=== PATIENT | male | born 1995 | race Caucasian/White ===

== ENCOUNTER 2019-02-13 12:55 | Inpatient (IN) | payer OTHER ==
[2019-02-13] MEDS: SOD CHLORIDE 0.9% 1,000 ML IV ×2 (14:52→20:00)
[2019-02-13 14:57] LABS: ADD MAN DIFF? NO
[2019-02-13 14:59] LABS: WHITE BLOOD COUNT 7.3 10^3/ul (4.8-10.8)
[2019-02-13 14:59] LABS: BASOPHIL # 0.1 10^3/ul (0.0-0.1); BASOPHILS % 1.1 % (0.0-2.0); EOSINOPHILS # 0.4 10^3/ul (0.0-0.5); EOSINOPHILS % 5.5 % (0.0-7.0); LYMPHOCYTES # 1.7 10^3/ul (0.8-2.9); LYMPHOCYTES % 22.9 % (15.0-51.0); MEAN CORPUSCULAR HEMOGLOBIN 31.3 pg (29.0-33.0); MEAN CORPUSCULAR HGB CONC 34.1 g/dl (32.0-37.0); MEAN CORPUSCULAR VOLUME 91.7 fl (82.0-101.0); MEAN PLATELET VOLUME 9.8 fl (7.4-10.4); MONOCYTE # 0.5 10^3/ul (0.3-0.9); MONOCYTES % 6.8 % (0.0-11.0); NEUTROPHIL # 4.6 10^3/ul (1.6-7.5); NEUTROPHILS % 63.3 % (39.0-77.0); PLATELET COUNT 254 10^3/UL (140-415); RED BLOOD COUNT 4.47 10^6/ul (4.70-6.10); RED CELL DISTRIBUTION WIDTH 13.7 % (11.5-14.5)
[2019-02-13 15:00] LABS: ADD UMIC NO; UR ASCORBIC ACID NEGATIVE (NEGATIVE); UR BILIRUBIN (Dip) NEGATIVE (NEGATIVE); UR BLOOD (Dip) NEGATIVE (NEGATIVE); UR CLARITY CLEAR (CLEAR); UR COLOR STRAW (YELLOW); UR GLUCOSE (Dip) 3+ mg/dL (NEGATIVE); UR KETONES (Dip) NEGATIVE (NEGATIVE); UR LEUKOCYTE ESTERASE (Dip) NEGATIVE Leu/ul (NEGATIVE); UR NITRITE (Dip) NEGATIVE (NEGATIVE); UR TOTAL PROTEIN (Dip) NEGATIVE (NEGATIVE); UR UROBILINOGEN (Dip) NEGATIVE (NEGATIVE)
[2019-02-13 15:16] LABS: ALANINE AMINOTRANSFERASE 137 IU/L (13-69); ALBUMIN 3.9 g/dl (3.3-4.9); ALBUMIN/GLOBULIN RATIO 1.25; ALKALINE PHOSPHATASE 160 IU/L (42-121); ANION GAP 10 (5-13); ASPARTATE AMINO TRANSFERASE 103 IU/L (15-46); BILIRUBIN,INDIRECT 1.3 mg/dl (0-1.1); BILIRUBIN,TOTAL 1.3 mg/dl (0.2-1.3); BLOOD UREA NITROGEN 9 mg/dl (7-20); CALCIUM 9.8 mg/dl (8.4-10.2); CARBON DIOXIDE 31 mmol/L (21-31); CHLORIDE 100 mmol/L (97-110); CREATININE 0.53 mg/dl (0.61-1.24); Estimated GFR > 60 mL/min (>60); GLUCOSE 295 mg/dl (70-220); POTASSIUM 4.2 mmol/L (3.5-5.1); SODIUM 141 mmol/L (135-144)
[2019-02-13 15:51] LABS: LIPASE 3963 U/L (23-300)
[2019-02-13] MEDS ORDERED: ACETAMINOPHEN 325 MG TAB PO ×2 (18:00→18:30)
[2019-02-13] MEDS ORDERED: ONDANSETRON 4 MG INJ IV ×2 (18:00→18:30)
[2019-02-13] MEDS ORDERED: NACL 0.9% 3 ML SYG IV (18:30)
[2019-02-13] MEDS ORDERED: DOCUSATE SODIUM 100 MG CAP PO (18:30)
[2019-02-13] MEDS ORDERED: LORAZEPAM 2 MG INJ IV (18:30)
[2019-02-13] MEDS ORDERED: NITROGLYCERIN (SL) 0.4 MG TAB SL (18:30)
[2019-02-13] MEDS ORDERED: ALBUTEROL/IPRATROPIUM (NEB) 3 ML AMP HHN (18:30)
[2019-02-13] MEDS ORDERED: hydrALAzine 20 MG INJ IV (18:30)
[2019-02-13] MEDS ORDERED: MAGNESIUM HYDROXIDE 30ML CUP PO (18:30)
[2019-02-13 19:38] LABS: INR 0.92; PARTIAL THROMBOPLASTIN TIME 24.1 Sec (23.0-35.0); PROTIME 12.5 Sec (11.9-14.9)
[2019-02-13 19:50] LABS: ETHANOL < 10.0 mg/dl (0-0)
[2019-02-13 20:04] LABS: FREE T4 (FREE THYROXINE) 0.97 ng/dl (0.79-2.35)
[2019-02-13] MEDS: INSULIN ASPART [NOVOLOG] 3 ML PEN SC (21:00)
[2019-02-13] MEDS: HEPARIN 5,000 UNIT/1 ML VIAL SC (21:00)
[2019-02-13] MEDS: DEXTROSE 5%-0.45% NACL 1,000 ML IV (21:52)
[2019-02-13] MEDS: morphine 2 MG INJ IV (23:51)
[2019-02-14] MEDS: ACCU-CHEK XX ×6 (01:23→21:00)
[2019-02-14] MEDS ORDERED: GLUCOSE GEL 15 GRAM TUBE PO ×2 (01:30)
[2019-02-14] MEDS ORDERED: GLUCAGON 1 MG INJ IM (01:30)
[2019-02-14] MEDS ORDERED: GLUCOSE GEL 15 GRAM TUBE BUCCAL (01:30)
[2019-02-14] MEDS ORDERED: DEXTROSE 50% 50 ML SYRINGE IV (01:30)
[2019-02-14] MEDS: DEXTROSE 50% 50 ML SYRINGE IV ×2 (01:53→06:23)
[2019-02-14] MEDS ORDERED: ACCU-CHEK XX (02:00)
[2019-02-14 05:04] LABS: ADD MAN DIFF? NO
[2019-02-14 05:12] LABS: BASOPHIL # 0.1 10^3/ul (0.0-0.1); BASOPHILS % 1.1 % (0.0-2.0); EOSINOPHILS # 0.7 10^3/ul (0.0-0.5); EOSINOPHILS % 9.1 % (0.0-7.0); HEMATOCRIT 38.4 % (42.0-52.0); HEMOGLOBIN 12.6 g/dl (14.0-18.0); LYMPHOCYTES # 1.9 10^3/ul (0.8-2.9); LYMPHOCYTES % 26.3 % (15.0-51.0); MEAN CORPUSCULAR HEMOGLOBIN 30.7 pg (29.0-33.0); MEAN CORPUSCULAR HGB CONC 32.8 g/dl (32.0-37.0); MEAN CORPUSCULAR VOLUME 93.4 fl (82.0-101.0); MEAN PLATELET VOLUME 10.1 fl (7.4-10.4); MONOCYTE # 0.6 10^3/ul (0.3-0.9); NEUTROPHILS % 55.1 % (39.0-77.0); PLATELET COUNT 245 10^3/UL (140-415); RED BLOOD COUNT 4.11 10^6/ul (4.70-6.10)
[2019-02-14 05:12] LABS: WHITE BLOOD COUNT 7.3 10^3/ul (4.8-10.8)
[2019-02-14 05:31] LABS: ALANINE AMINOTRANSFERASE 115 IU/L (13-69); ALBUMIN 3.3 g/dl (3.3-4.9); ALKALINE PHOSPHATASE 133 IU/L (42-121); ASPARTATE AMINO TRANSFERASE 105 IU/L (15-46); BILIRUBIN,INDIRECT 1.2 mg/dl (0-1.1); BILIRUBIN,TOTAL 1.2 mg/dl (0.2-1.3); TOTAL PROTEIN 5.9 g/dl (6.1-8.1)
[2019-02-14 05:44] LABS: ANION GAP 5 (5-13); BLOOD UREA NITROGEN 7 mg/dl (7-20); CALCIUM 9.3 mg/dl (8.4-10.2); CARBON DIOXIDE 34 mmol/L (21-31); CHLORIDE 107 mmol/L (97-110); CREATININE 0.51 mg/dl (0.61-1.24); Estimated GFR > 60 mL/min (>60); GLUCOSE 66 mg/dl (70-220); LIPASE 1473 U/L (23-300); MAGNESIUM 2.2 mg/dl (1.7-2.5); PHOSPHORUS 5.6 mg/dl (2.5-4.9); POTASSIUM 4.1 mmol/L (3.5-5.1); SODIUM 146 mmol/L (135-144)
[2019-02-14] MEDS: DEXTROSE 5%-0.45% NACL 1,000 ML IV ×2 (06:57→16:48)
[2019-02-14 07:21] LABS: HEMOGLOBIN A1C 9.5 % (0-5.9)
[2019-02-14 08:09] LABS: CHOLESTEROL 135 mg/dl (100-200)
[2019-02-14 08:09] LABS: CHOL/HDL RATIO 5.6 RATIO; HDL CHOLESTEROL 24 mg/dl (30-63); LDL CHOLESTEROL,CALCULATED 57 mg/dl; TRIGLYCERIDES 269 mg/dl (0-149)
[2019-02-14] MEDS: HEPARIN 5,000 UNIT/1 ML VIAL SC (09:00)
[2019-02-14] MEDS: HYDROCODONE/APAP (5/325) TAB PO (12:57)
[2019-02-14] MEDS: morphine 2 MG INJ IV (16:50)
[2019-02-14] MEDS: INSULIN PUMP SC ×2 (17:17→21:00)
[2019-02-15] MEDS: ACCU-CHEK XX ×6 (01:00→21:00)
[2019-02-15] MEDS: INSULIN PUMP SC ×7 (02:01→21:00)
[2019-02-15] MEDS: DEXTROSE 5%-0.45% NACL 1,000 ML IV (02:53)
[2019-02-15 05:10] LABS: ADD MAN DIFF? NO
[2019-02-15 05:16] LABS: WHITE BLOOD COUNT 4.7 10^3/ul (4.8-10.8)
[2019-02-15 05:16] LABS: BASOPHIL # 0.1 10^3/ul (0.0-0.1); BASOPHILS % 1.5 % (0.0-2.0); EOSINOPHILS # 0.5 10^3/ul (0.0-0.5); EOSINOPHILS % 11.3 % (0.0-7.0); HEMATOCRIT 34.6 % (42.0-52.0); HEMOGLOBIN 11.6 g/dl (14.0-18.0); LYMPHOCYTES # 1.6 10^3/ul (0.8-2.9); LYMPHOCYTES % 34.3 % (15.0-51.0); MEAN CORPUSCULAR HEMOGLOBIN 31.5 pg (29.0-33.0); MEAN CORPUSCULAR HGB CONC 33.5 g/dl (32.0-37.0); MEAN PLATELET VOLUME 10.1 fl (7.4-10.4); MONOCYTE # 0.4 10^3/ul (0.3-0.9); MONOCYTES % 7.9 % (0.0-11.0); NEUTROPHIL # 2.1 10^3/ul (1.6-7.5); NEUTROPHILS % 44.6 % (39.0-77.0); PLATELET COUNT 219 10^3/UL (140-415); RED BLOOD COUNT 3.68 10^6/ul (4.70-6.10); RED CELL DISTRIBUTION WIDTH 13.8 % (11.5-14.5)
[2019-02-15] MEDS: morphine 2 MG INJ IV (05:30)
[2019-02-15 05:57] LABS: LIPASE 1290 U/L (23-300)
[2019-02-15 06:00] LABS: ALANINE AMINOTRANSFERASE 182 IU/L (13-69); ALBUMIN 2.9 g/dl (3.3-4.9); ALBUMIN/GLOBULIN RATIO 1.11; ALKALINE PHOSPHATASE 135 IU/L (42-121); ANION GAP 4 (5-13); ASPARTATE AMINO TRANSFERASE 347 IU/L (15-46); BILIRUBIN,INDIRECT 1.6 mg/dl (0-1.1); BILIRUBIN,TOTAL 1.6 mg/dl (0.2-1.3); BLOOD UREA NITROGEN 7 mg/dl (7-20); CALCIUM 8.7 mg/dl (8.4-10.2); CARBON DIOXIDE 32 mmol/L (21-31); CHLORIDE 105 mmol/L (97-110); CREATININE 0.59 mg/dl (0.61-1.24); Estimated GFR > 60 mL/min (>60); GLUCOSE 128 mg/dl (70-220); POTASSIUM 3.8 mmol/L (3.5-5.1); SODIUM 141 mmol/L (135-144); TOTAL PROTEIN 5.5 g/dl (6.1-8.1)
[2019-02-15 12:09] LABS: HAAIG REFLEX REFLEX FILED
[2019-02-15] MEDS: SOD CHLORIDE 0.9% 1,000 ML IV ×2 (12:33→22:19)
[2019-02-15 13:06] LABS: HEPATITIS B SURFACE ANTIGEN NEGATIVE (NEGATIVE)
[2019-02-15 13:24] LABS: HEPATITIS B CORE ANTIBODY NEGATIVE (NEGATIVE); HEPATITIS C VIRAL ANTIBODY NEGATIVE (NEGATIVE)
[2019-02-16] MEDS: INSULIN PUMP SC ×6 (01:00→21:35)
[2019-02-16] MEDS: ACCU-CHEK XX ×6 (01:00→21:31)
[2019-02-16 05:40] LABS: ADD MAN DIFF? NO
[2019-02-16 05:48] LABS: WHITE BLOOD COUNT 3.5 10^3/ul (4.8-10.8)
[2019-02-16 05:48] LABS: BASOPHIL # 0.1 10^3/ul (0.0-0.1); BASOPHILS % 2.3 % (0.0-2.0); EOSINOPHILS # 0.3 10^3/ul (0.0-0.5); EOSINOPHILS % 8.4 % (0.0-7.0); HEMATOCRIT 36.5 % (42.0-52.0); LYMPHOCYTES # 1.5 10^3/ul (0.8-2.9); LYMPHOCYTES % 43.2 % (15.0-51.0); MEAN CORPUSCULAR HEMOGLOBIN 30.8 pg (29.0-33.0); MEAN CORPUSCULAR HGB CONC 32.9 g/dl (32.0-37.0); MEAN CORPUSCULAR VOLUME 93.8 fl (82.0-101.0); MEAN PLATELET VOLUME 10.7 fl (7.4-10.4); MONOCYTE # 0.3 10^3/ul (0.3-0.9); MONOCYTES % 8.4 % (0.0-11.0); NEUTROPHIL # 1.3 10^3/ul (1.6-7.5); NEUTROPHILS % 37.4 % (39.0-77.0); PLATELET COUNT 230 10^3/UL (140-415); RED BLOOD COUNT 3.89 10^6/ul (4.70-6.10); RED CELL DISTRIBUTION WIDTH 13.5 % (11.5-14.5)
[2019-02-16 06:14] LABS: ALANINE AMINOTRANSFERASE 285 IU/L (13-69); ALBUMIN 3.4 g/dl (3.3-4.9); ALBUMIN/GLOBULIN RATIO 1.17; ALKALINE PHOSPHATASE 197 IU/L (42-121); ANION GAP 8 (5-13); ASPARTATE AMINO TRANSFERASE 610 IU/L (15-46); BILIRUBIN,INDIRECT 1.9 mg/dl (0-1.1); BILIRUBIN,TOTAL 1.9 mg/dl (0.2-1.3); BLOOD UREA NITROGEN 6 mg/dl (7-20); CALCIUM 9.2 mg/dl (8.4-10.2); CARBON DIOXIDE 31 mmol/L (21-31); CHLORIDE 108 mmol/L (97-110); CREATININE 0.57 mg/dl (0.61-1.24); Estimated GFR > 60 mL/min (>60); GLUCOSE 67 mg/dl (70-220); LIPASE 1150 U/L (23-300); POTASSIUM 3.9 mmol/L (3.5-5.1); SODIUM 147 mmol/L (135-144); TOTAL PROTEIN 6.3 g/dl (6.1-8.1)
[2019-02-16] MEDS: SOD CHLORIDE 0.9% 1,000 ML IV ×2 (08:57→17:55)
[2019-02-17] MEDS: INSULIN PUMP SC ×6 (01:00→20:43)
[2019-02-17] MEDS: ACCU-CHEK XX ×6 (01:05→20:44)
[2019-02-17 05:19] LABS: ADD MAN DIFF? NO
[2019-02-17 05:24] LABS: WHITE BLOOD COUNT 4.6 10^3/ul (4.8-10.8)
[2019-02-17 05:24] LABS: BASOPHIL # 0.1 10^3/ul (0.0-0.1); BASOPHILS % 1.7 % (0.0-2.0); EOSINOPHILS # 0.4 10^3/ul (0.0-0.5); EOSINOPHILS % 8.5 % (0.0-7.0); HEMATOCRIT 34.9 % (42.0-52.0); HEMOGLOBIN 11.7 g/dl (14.0-18.0); LYMPHOCYTES # 1.6 10^3/ul (0.8-2.9); LYMPHOCYTES % 35.7 % (15.0-51.0); MEAN CORPUSCULAR HEMOGLOBIN 31.1 pg (29.0-33.0); MEAN CORPUSCULAR HGB CONC 33.5 g/dl (32.0-37.0); MEAN CORPUSCULAR VOLUME 92.8 fl (82.0-101.0); MEAN PLATELET VOLUME 10.5 fl (7.4-10.4); MONOCYTE # 0.4 10^3/ul (0.3-0.9); MONOCYTES % 8.7 % (0.0-11.0); NEUTROPHIL # 2.1 10^3/ul (1.6-7.5); PLATELET COUNT 231 10^3/UL (140-415); RED BLOOD COUNT 3.76 10^6/ul (4.70-6.10); RED CELL DISTRIBUTION WIDTH 13.7 % (11.5-14.5)
[2019-02-17 06:03] LABS: ALANINE AMINOTRANSFERASE 368 IU/L (13-69); ALBUMIN 3.1 g/dl (3.3-4.9); ALKALINE PHOSPHATASE 194 IU/L (42-121); ASPARTATE AMINO TRANSFERASE 677 IU/L (15-46); TOTAL PROTEIN 5.7 g/dl (6.1-8.1)
[2019-02-17 06:21] LABS: ANION GAP 8 (5-13); BLOOD UREA NITROGEN 8 mg/dl (7-20); CARBON DIOXIDE 29 mmol/L (21-31); CHLORIDE 107 mmol/L (97-110); CREATININE 0.58 mg/dl (0.61-1.24); Estimated GFR > 60 mL/min (>60); GLUCOSE 62 mg/dl (70-220); POTASSIUM 3.5 mmol/L (3.5-5.1); SODIUM 144 mmol/L (135-144)
[2019-02-17 07:20] LABS: LIPASE 1602 U/L (23-300)
[2019-02-17 13:45] LABS: AMYLASE 275 U/L (11-123)
[2019-02-18] MEDS: ACCU-CHEK XX ×6 (01:00→21:00)
[2019-02-18] MEDS: INSULIN PUMP SC ×5 (01:00→17:49)
[2019-02-18 05:14] LABS: ADD MAN DIFF? NO
[2019-02-18 05:19] LABS: WHITE BLOOD COUNT 4.8 10^3/ul (4.8-10.8)
[2019-02-18 05:20] LABS: BASOPHIL # 0.1 10^3/ul (0.0-0.1); BASOPHILS % 2.1 % (0.0-2.0); EOSINOPHILS # 0.3 10^3/ul (0.0-0.5); EOSINOPHILS % 6.5 % (0.0-7.0); HEMATOCRIT 37.6 % (42.0-52.0); HEMOGLOBIN 12.4 g/dl (14.0-18.0); LYMPHOCYTES # 1.6 10^3/ul (0.8-2.9); LYMPHOCYTES % 33.6 % (15.0-51.0); MEAN CORPUSCULAR HEMOGLOBIN 31.1 pg (29.0-33.0); MEAN CORPUSCULAR VOLUME 94.2 fl (82.0-101.0); MEAN PLATELET VOLUME 10.4 fl (7.4-10.4); MONOCYTE # 0.4 10^3/ul (0.3-0.9); MONOCYTES % 9.2 % (0.0-11.0); NEUTROPHIL # 2.3 10^3/ul (1.6-7.5); PLATELET COUNT 245 10^3/UL (140-415); RED BLOOD COUNT 3.99 10^6/ul (4.70-6.10); RED CELL DISTRIBUTION WIDTH 13.4 % (11.5-14.5)
[2019-02-18 05:49] LABS: PHOSPHORUS 5.6 mg/dl (2.5-4.9)
[2019-02-18 05:49] LABS: ALANINE AMINOTRANSFERASE 442 IU/L (13-69); ALBUMIN 3.5 g/dl (3.3-4.9); ALKALINE PHOSPHATASE 190 IU/L (42-121); ASPARTATE AMINO TRANSFERASE 685 IU/L (15-46); BILIRUBIN,INDIRECT 0.9 mg/dl (0-1.1); BILIRUBIN,TOTAL 0.9 mg/dl (0.2-1.3); MAGNESIUM 2.2 mg/dl (1.7-2.5); TOTAL PROTEIN 5.9 g/dl (6.1-8.1)
[2019-02-18 05:57] LABS: ANION GAP 8 (5-13); BLOOD UREA NITROGEN 10 mg/dl (7-20); CALCIUM 9.3 mg/dl (8.4-10.2); CARBON DIOXIDE 31 mmol/L (21-31); CHLORIDE 105 mmol/L (97-110); Estimated GFR > 60 mL/min (>60); GLUCOSE 59 mg/dl (70-220); LIPASE 3029 U/L (23-300); POTASSIUM 3.4 mmol/L (3.5-5.1); SODIUM 144 mmol/L (135-144)
[2019-02-18] MEDS: POTASSIUM CHLORIDE 20 MEQ POWDER FOR ORAL SOLN PO (11:25)
[2019-02-18] MEDS: BARIUM SULF 2% 450 ML BTL (BERRY SMOOTHIE) PO (17:44)
[2019-02-18] MEDS: SOD CHLORIDE 0.9% 100 ML (19:52)
[2019-02-18] MEDS: IOHEXOL 300MG/ML 150 ML BTL (19:52)
[2019-02-18] MEDS: PT'S OWN INSULIN PUMP SC (20:43)
[2019-02-19 05:08] LABS: ADD MAN DIFF? NO
[2019-02-19 05:10] LABS: BASOPHIL # 0.1 10^3/ul (0.0-0.1); BASOPHILS % 1.7 % (0.0-2.0); EOSINOPHILS # 0.3 10^3/ul (0.0-0.5); EOSINOPHILS % 4.7 % (0.0-7.0); HEMATOCRIT 37.4 % (42.0-52.0); HEMOGLOBIN 12.5 g/dl (14.0-18.0); LYMPHOCYTES # 1.5 10^3/ul (0.8-2.9); LYMPHOCYTES % 25.5 % (15.0-51.0); MEAN CORPUSCULAR HEMOGLOBIN 31.2 pg (29.0-33.0); MEAN CORPUSCULAR HGB CONC 33.4 g/dl (32.0-37.0); MEAN CORPUSCULAR VOLUME 93.3 fl (82.0-101.0); MEAN PLATELET VOLUME 10.5 fl (7.4-10.4); MONOCYTE # 0.6 10^3/ul (0.3-0.9); MONOCYTES % 9.9 % (0.0-11.0); NEUTROPHIL # 3.4 10^3/ul (1.6-7.5); NEUTROPHILS % 57.4 % (39.0-77.0); PLATELET COUNT 253 10^3/UL (140-415); RED BLOOD COUNT 4.01 10^6/ul (4.70-6.10); RED CELL DISTRIBUTION WIDTH 13.6 % (11.5-14.5)
[2019-02-19 05:33] LABS: ALANINE AMINOTRANSFERASE 413 IU/L (13-69); ALBUMIN 3.3 g/dl (3.3-4.9); ALKALINE PHOSPHATASE 195 IU/L (42-121); ASPARTATE AMINO TRANSFERASE 480 IU/L (15-46); BILIRUBIN,INDIRECT 0.7 mg/dl (0-1.1); BILIRUBIN,TOTAL 0.7 mg/dl (0.2-1.3)
[2019-02-19 05:36] LABS: ANION GAP 8 (5-13); BLOOD UREA NITROGEN 7 mg/dl (7-20); CALCIUM 9.3 mg/dl (8.4-10.2); CARBON DIOXIDE 30 mmol/L (21-31); CHLORIDE 104 mmol/L (97-110); CREATININE 0.55 mg/dl (0.61-1.24); Estimated GFR > 60 mL/min (>60); GLUCOSE 186 mg/dl (70-220); SODIUM 142 mmol/L (135-144)
[2019-02-19] MEDS: ACCU-CHEK XX ×2 (09:00→12:30)
[2019-02-19] MEDS: PT'S OWN INSULIN PUMP SC ×2 (09:00→12:30)
[2019-02-19 12:01] LABS: ANA SCREEN NEGATIVE (NEGATIVE)
[2019-02-19 12:52] LABS: MITOCHONDRIAL TB NEGATIVE (NEGATIVE); SMOOTH MUSCLE AB SCREEN NEGATIVE (NEGATIVE)
== END 2019-02-19 13:20 | disposition home or self-care (01) | DRG 440 ==
LOC: MS1 02-17 01:05 → FTE 12:55 → MS1 17:35
DX: K85.20 Alcohol induced acute pancreatitis without necrosis or infection (principal); E10.8 Type 1 diabetes mellitus with unspecified complications; R74.0 Nonspecific elevation of levels of transaminase and lactic acid dehydrogenase [LDH]; Z96.41 Presence of insulin pump (external) (internal)
CPT/HCPCS: 36415; 74177; 74181; 76705; 80048; 80053; 80061; 80076; 80307; 81003; 82150; 82787; 82962; 83036; 83690; 83735; 84100; 84439; 84443; 85025; 85610; 85730; 86038; 86255; 86376; 86704; 86709; 86803; 87340; 99285-25